=== PATIENT | female | born 1955 | race Caucasian/White ===

== ENCOUNTER → 2017-02-12 | Outpatient (CLI) | payer MEDICAID ==
--- NOTE | 2017-02-12 11:09 | Diagnostic Imaging Report ---
EXAMINATION: Bilateral lower extremity duplex venous ultrasound. TECHNIQUE: DVT protocol. Multiple sonographic images with color Doppler and waveform interrogation were performed of the lower extremity veins, bilaterally, with compression and augmentation maneuvers. INDICATION: Bilateral leg pain. FINDINGS: The lower extremity veins from the common femoral veins to below the knee veins were examined with normal color-flow, compressibility and normal waveform demonstrated. The peroneal veins within the distal calves were not seen on this exam. The great saphenous vein bilaterally is patent. IMPRESSION: No evidence of DVT in either lower extremity. Dictated by: Dictated on workstation # [id number]
== END ==
LOC: RAD 10:27
PROVIDERS: ATTEND Internal Medicine Critical Care Medicine
DX: M79.661 Pain in right lower leg (principal); M79.662 Pain in left lower leg; R06.00 Dyspnea, unspecified; J44.9 Chronic obstructive pulmonary disease, unspecified; G47.34 Idiopathic sleep related nonobstructive alveolar hypoventilation
CPT/HCPCS: 93970

== ENCOUNTER → 2017-02-27 | Outpatient (CLI) | payer MEDICAID ==
--- NOTE | 2017-02-27 17:10 | Diagnostic Imaging Report ---
PROCEDURE: CT chest without contrast. TECHNIQUE: Multiple contiguous axial images were obtained through the chest without the use of intravenous contrast. INDICATION: Difficulty breathing, productive cough. CORRELATION STUDY: None. FINDINGS: Evaluation of the mediastinal structures does demonstrate a few small lymph nodes. Evaluation of the mediastinum is limited given lack of intravenous contrast. Heart size is normal. There is presence of coronary artery and valvular calcification. Thoracic aortic contour appearing unremarkable. Prominent calcification of the aortic arch. There appears to be rather significant calcification of the origin of the left subclavian artery which may very well be stenotic. EG junction is unremarkable. Lung marcum do demonstrate advanced emphysematous changes to be present. No infiltrate. Visualized portion of the upper abdomen is relatively unremarkable. Osseous structures are unremarkable for acute findings. IMPRESSION: 1. Negative for acute abnormality of the chest on noncontrast imaging. Advanced emphysematous changes about the lung parenchyma. 2. Atherosclerotic vascular calcification. There is an asymmetric prominent calcification at the takeoff of the left subclavian artery, likely with stenosis. Dictated by: Dictated on workstation # [id number]
== END ==
LOC: EDUNIT# 02-12 09:47 → RAD 11:38
PROVIDERS: ATTEND Nurse Practitioner Family
DX: J43.9 Emphysema, unspecified (principal); I70.8 Atherosclerosis of other arteries
CPT/HCPCS: 71250

== ENCOUNTER → 2017-02-27 | Outpatient (CLI) | payer MEDICAID ==
[~2017-02-27] MED LIST: RT-ALBUTEROL SULF 2.5 MG/3 ML PRE-MIX VIAL IH ONE
== END ==
LOC: EDUNIT# 02-12 09:48 → RT 11:33
PROVIDERS: ATTEND Nurse Practitioner Family
DX: J40 Bronchitis, not specified as acute or chronic (principal); J44.9 Chronic obstructive pulmonary disease, unspecified; R06.00 Dyspnea, unspecified
CPT/HCPCS: 94060; 94640; 94726; 94729

== ENCOUNTER 2017-06-25 10:00 | Outpatient (RCR) | payer MEDICAID | END 2017-08-11 | disposition home or self-care (01) | LOC: PULM 10:00 | PROVIDERS: ATTEND Nurse Practitioner Family | DX: J40 Bronchitis, not specified as acute or chronic (principal); J44.9 Chronic obstructive pulmonary disease, unspecified; Z87.891 Personal history of nicotine dependence | CPT/HCPCS: 99211 ==

== ENCOUNTER 2017-10-31 13:00 | Outpatient (RCR) | payer MEDICAID ==
[2017-11-05 13:00] VITALS: BP 120/60
[2017-11-05 14:00] VITALS: BP 120/60
== END 2017-11-10 | disposition home or self-care (01) ==
LOC: PULM 13:00
PROVIDERS: ATTEND Nurse Practitioner Family
DX: J40 Bronchitis, not specified as acute or chronic (principal); J43.9 Emphysema, unspecified; Z87.891 Personal history of nicotine dependence
CPT/HCPCS: 99211

== ENCOUNTER → 2018-06-17 | Outpatient (CLI) | payer MEDICAID ==
--- NOTE | 2018-06-17 13:47 | Diagnostic Imaging Report ---
PROCEDURE: CT chest without contrast. TECHNIQUE: Multiple contiguous axial images were obtained through the chest without the use of intravenous contrast. INDICATION: COPD and emphysema. COMPARISON: Comparison is made with prior CT of the chest from 02/27/2017. FINDINGS: Study was performed with low-dose protocol which does limit overall quality of the study. No definite axillary lymphadenopathy is seen. Hilar and mediastinal evaluation is limited without intravenous contrast. Coronary arterial calcifications are again seen. No pericardial or pleural fluid is identified. There has been development of an area of linear parenchymal density in the right apex with some central calcifications. In the axial plane this area of irregular density with central calcification measures approximately 11 mm. There is some associated apical pleural parenchymal scarring present. There are centrilobular emphysematous changes in both lungs. No other parenchymal abnormality is seen. IMPRESSION: Right apical pleural-parenchymal density with central calcification, new since CT from 02/27/2017. This is likely chronic however continued close followup is recommended. Consideration could be given to performance of a PET scan as well to evaluate for hypermetabolism. Remainder of the study is unremarkable. Dictated by: Dictated on workstation # [id number]
== END ==
LOC: RAD 13:09
PROVIDERS: ATTEND Internal Medicine Critical Care Medicine
DX: J43.9 Emphysema, unspecified (principal); J30.2 Other seasonal allergic rhinitis; J40 Bronchitis, not specified as acute or chronic; G47.34 Idiopathic sleep related nonobstructive alveolar hypoventilation
CPT/HCPCS: 71250

== ENCOUNTER → 2018-07-01 | Outpatient (CLI) | payer MEDICAID ==
--- NOTE | 2018-07-01 14:08 | Diagnostic Imaging Report ---
INDICATION: Right apical nodule noted on a recent low-dose chest CT. TECHNIQUE: The serum blood glucose level at the time of injection was 85 dL. The patient was administered 11.2 mCi of F-18 FDG intravenously and PET imaging from the top of skull to the mid thighs was performed. A noncontrast CT was also performed for attenuation correction and anatomic correlation. COMPARISON: No prior PET study is available for comparison. Correlation is made with the recent low-dose chest CT from 06/17/2018. FINDINGS: Symmetric activity throughout the brain is noted. No suspicious hypermetabolism in the soft tissues of the neck is identified. The area of density in the right lung apex is without hypermetabolism. No pulmonary hypermetabolism is seen. The mediastinum and parish are unremarkable. Imaging through the abdomen and pelvis demonstrates physiologic activity within the GI and tracts. IMPRESSION: Unremarkable PET/CT study. No abnormal hypermetabolism in the right lung apex is seen. The area in question most likely represents chronic scarring. Dictated by: Dictated on workstation # [id number]
== END ==
LOC: RAD 10:28
PROVIDERS: ATTEND Internal Medicine Critical Care Medicine
DX: J43.9 Emphysema, unspecified (principal); J40 Bronchitis, not specified as acute or chronic; J30.2 Other seasonal allergic rhinitis; G47.34 Idiopathic sleep related nonobstructive alveolar hypoventilation; R91.1 Solitary pulmonary nodule

== ENCOUNTER → 2018-11-24 | Outpatient (CLI) | payer MEDICAID ==
[~2018-11-24] MED LIST changes: -RT-ALBUTEROL SULF 2.5 MG/3 ML PRE-MIX VIAL IH ONE; +RT-ALBUTEROL SULF 2.5 MG/3 ML PRE-MIX VIAL INH ONE
== END ==
LOC: RT 15:18
PROVIDERS: ATTEND Nurse Practitioner Family
DX: J43.9 Emphysema, unspecified (principal); J40 Bronchitis, not specified as acute or chronic; R06.02 Shortness of breath; J30.9 Allergic rhinitis, unspecified
CPT/HCPCS: 94060; 94726; 94729

== ENCOUNTER → 2019-01-09 | Outpatient (CLI) | payer MEDICAID ==
--- NOTE | 2019-01-09 10:01 | Diagnostic Imaging Report ---
PROCEDURE: CT chest without contrast. TECHNIQUE: Multiple contiguous axial images were obtained through the chest without the use of intravenous contrast. Auto Exposure Controls were utilized during the CT exam to meet ALARA standards for radiation dose reduction. INDICATION: Six month followup from previous abnormal CT lung screening study. Correlation is made with prior CT from 06/17/2018. No axillary lymphadenopathy is identified. Mediastinal lymph nodes appear to be stable when compared with prior study. No gross hilar abnormality is identified. There are coronary arterial calcifications. No pericardial fluid or pleural fluid is detected. The centrally calcified irregular density in the right lung apex is very similar in appearance and measures 11 mm, stable. Centrilobular emphysematous changes are identified in both lungs. No new mass or infiltrate is seen. Upper abdomen is unremarkable. IMPRESSION: 1. Stable spiculated partially calcified density right lung apex when compared with exam from 06/17/2018. No new abnormality is detected. Additional followup in 6-12 months could be performed to show continued stability. Dictated by: Dictated on workstation # [id number]
== END ==
LOC: RAD FS 08:31
PROVIDERS: ATTEND Nurse Practitioner Family
DX: J43.9 Emphysema, unspecified (principal); J98.4 Other disorders of lung; J30.2 Other seasonal allergic rhinitis; J40 Bronchitis, not specified as acute or chronic; G47.34 Idiopathic sleep related nonobstructive alveolar hypoventilation
CPT/HCPCS: 71250

== ENCOUNTER 2019-02-20 14:04 | Emergency (ER) | payer MEDICAID ==
[~2019-02-20] VITALS: Ht 152.4 cm; Wt 76.2 kg
[2019-02-20] MEDS ORDERED: NS IV 1000 ML 1,000 ML IV SCH (14:30)
[2019-02-20] MEDS ORDERED: KCL 20 MEQ TAB (K-DUR) PO ONE ×2 (14:30→15:15)
--- NOTE | 2019-02-20 14:52 | ED General ---
General Chief Complaint: General Problems/Pain Stated Complaint: LOW POTASSIUM Nursing Triage Note: was sent here by PCP for potassium level of 2.7. Nursing Sepsis Screen: No Definite Risk History of Present Illness Date Seen by Provider: Feb 20, 2019 Time Seen by Provider: 14:47 Initial Comments Patient is a 63-year-old female who was referred to the emergency department by her primary physician's office for evaluation of hypokalemia. The patient had labs completed yesterday and she was noted to have a potassium of 2.7. Her sodium was also 128. The patient has no symptoms. She reports that she has been feeling at baseline. She reports she has had both of these problems in the past. She does take Lasix daily. Her potassium had recently been increased to 20 mEq 3 times daily as opposed to 2 doses. Patient presents to the emergency department with no more specific complaints. Allergies and Home Medications Allergies Coded Allergies: sulfamethoxazole (Unverified Allergy, Intermediate, 02/27/17) patient has bad kidneys, and it makes her have a reaction trimethoprim (Unverified Allergy, Intermediate, 02/27/17) patient has bad kidneys, and it makes her have a reaction Uncoded Allergies: iodine dye (Adverse Reaction, Intermediate, 02/27/17) has bad kidneys, was told not to use iodine dyes Patient Home Medication List Home Medication List Reviewed: Yes Review of Systems Review of Systems Constitutional: no symptoms reported EENTM: no symptoms reported Respiratory: no symptoms reported Cardiovascular: no symptoms reported Genitourinary: no symptoms reported Musculoskeletal: no symptoms reported Skin: no symptoms reported All Other Systems Reviewed Negative Unless Noted: Yes Past Gdulkkq-Lxlbvr-Yaynxs Hx Patient Social History Alcohol Use: Denies Use Recreational Drug Use: No Smoking Status: Never a Smoker 2nd Hand Smoke Exposure: No Recent Foreign Travel: No Contact w/Someone Who Travel: No Recent Infectious Disease Expo: No Recent Hopitalizations: No Physical Abuse: No Sexual Abuse: No Mistreated: No Fear: No Seasonal Allergies Seasonal Allergies: No Past Medical History Surgeries: Yes (colonoscopy; dental) Respiratory: No Cardiac: No Neurological: No Genitourinary: No Gastrointestinal: No Musculoskeletal: No Endocrine: No HEENT: No Cancer: No Psychosocial: Yes Depression Integumentary: No Blood Disorders: No Adverse Reaction/Blood Tranf: No Physical Exam Vital Signs Vital Signs - First Documented 02/20/19 14:41 Temp 98.4 Pulse 83 Resp 19 B/P (MAP) 124/51 (75) Pulse Ox 97 Capillary Refill : Less Than 3 Seconds Height, Weight, BMI Height: 5'0" Weight: 168lbs. oz. 76.244904bw; BMI Method:Stated General Appearance: No Apparent Distress, WD/WN HEENT: PERRL/EOMI, Normal ENT Inspection Neck: Full Range of Motion Respiratory: Chest Non Tender, Lungs Clear Cardiovascular: Regular Rate, Rhythm Gastrointestinal: Non Tender, Soft Extremity: Normal Capillary Refill, Normal Inspection Neurologic/Psychiatric: Alert, Oriented x3, No Motor/Sensory Deficits, Normal Mood/Affect Skin: Normal Color, Warm/Dry Progress/Results/Core Measures Suspected Sepsis Recent Fever Within 48 Hours: No Infection Criteria Present: None New/Unexplained Altered Menta: No Sepsis Screen: No Definite Risk SIRS Temperature:98.4 Pulse: 83 Respiratory Rate: 19 Blood Pressure 124 /51 Mean: 75 Results/Orders My Orders Orders - MIKE RYAN DO Potassium Chloride (Tablet) (K Dur Table (02/20/19 14:30) Ekg Tracing (02/20/19 14:21) Potassium Chloride (Tablet) (K Dur Table (02/20/19 15:15) Medications Given in ED Current Medications Medications Dose Ordered Sig/Amor Route Start Time Stop Time Status Last Admin Dose Admin Potassium Chloride 40 meq ONCE ONCE PO 02/20/19 14:30 02/20/19 14:31 DC 02/20/19 14:47 40 MEQ Vital Signs/I&O 02/20/19 14:41 Temp 98.4 Pulse 83 Resp 19 B/P (MAP) 124/51 (75) Pulse Ox 97 Capillary Refill : Less Than 3 Seconds Blood Pressure Mean: 75 Progress Note : Time: 14:49 Progress Note Patient is seen and examined. No new labs are completed as she does have with her a copy of labs which were completed within the last 24 hours. The patient does have a potassium of 2.7. Her sodium is 128. Regarding both of these findings, there is no indication for IV potassium replacement with a level of 2.7 so this will not be completed in the emergency room. An EKG is completed and there are no EKG findings concerning for symptomatically hypokalemia. The patient additionally does not endorse any complaints. The risk of giving IV potassium much outweighs the benefit in a patient with normal renal function who could otherwise take by mouth replacement. In the ER, the plan is to give her 40 mg of potassium by mouth. She will receive another 40 mEq after 30 minutes. Regarding her sodium, 128 does not represent a critical low sodium level. Additionally, the patient has chronic low sodium. No immediate sodium replacement is indicated today and admission to the hospital is also not indicated. The patient does not have symptomatic hyponatremia. Consideration is given for check of serum osmolality, urine osmolality, urine electrolytes and creatinine and blood creatinine and sodium. These can be compared to possibly isolate a cause for her hyponatremia but these results will not return to this emergency department in a timely manner. Additionally, these can be completed on an outpatient basis and I recommend for her primary care physician to evaluate if not already done. 15:30: Patient is given a second dose of potassium. Plan is for discharge home. Patient was advised to increase her potassium dosage to 40 mEq in the morning, 20 mEq in the midday, and 40 mg in the evening. The patient has normal creatinine and if she takes too much potassium this should physiologically be cleared. Additionally, she takes Lasix which will also help clear her potassium. She is advised about fluid restriction over the next 1-2 days. She was advised to hold her Lasix as well over the next 2 doses only. Contact her primary care physician on Saturday to have her blood rechecked. ECG Initial ECG Impression Date: Feb 20, 2019 Initial ECG Impression Time: 14:45 Initial ECG Rate: 70 Initial ECG Rhythm: Normal Sinus Departure Impression Primary Impression: Hypokalemia Disposition: 01 HOME, SELF-CARE Condition: Improved Departure-Patient Inst. Referrals: DONALD PHILIP DO (PCP/Family) Primary Care Physician MIKE RYAN DO Feb 20, 2019 14:52
[2019-02-20 15:37] VITALS: BP 124/51
--- OUTSIDE RECORDS SUMMARY | 2019-02-20 20:53 | XMS REPORT | Continuity of Care Document ---
Author Organization Unknown Address Unknown Allergies Active Description Code Type Severity Reaction Onset Reported/Identified Relationship to Patient Clinical Status Yes iodine dye iodine dye Moderate N/A 02/27/2017 Yes sulfamethoxazole [id number] Drug Allergy Moderate N/A 02/27/2017 Yes trimethoprim [id number] Drug Allergy Moderate N/A 02/27/2017 Medications There is no data. Problems Date Dx Coded Attending Type Code Diagnosis Diagnosed By 02/28/2017 BRANDAN LÓPEZ APRN Ot I70.8 ATHEROSCLEROSIS OF OTHER ARTERIES 02/28/2017 BRANDAN LÓPEZ APRN Ot J43.9 EMPHYSEMA, UNSPECIFIED 03/01/2017 BRIAN MUSTAFA DO Ot G47.34 IDIO SLEEP RELATED NONOBSTRUCTIVE ALVEOL 03/01/2017 BRIAN MUSTAFA DO Ot J44.9 CHRONIC OBSTRUCTIVE PULMONARY DISEASE, U 03/01/2017 BRIAN MUSTAFA DO Ot M79.661 PAIN IN RIGHT LOWER LEG 03/01/2017 BRIAN MUSTAFA DO Ot M79.662 PAIN IN LEFT LOWER LEG 03/01/2017 BRIAN MUSTAFA DO Ot R06.00 DYSPNEA, UNSPECIFIED 03/01/2017 BRANDAN LÓPEZ APRN Ot J40 BRONCHITIS, NOT SPECIFIED ACUTE OR CH 03/01/2017 BRANDAN LÓPEZ APRN Ot J44.9 CHRONIC OBSTRUCTIVE PULMONARY DISEASE, U 03/01/2017 BRANDAN LÓPEZ APRN Ot R06.00 DYSPNEA, UNSPECIFIED 03/12/2017 BRANDAN LÓPEZ APRN Ot I70.8 ATHEROSCLEROSIS OF OTHER ARTERIES 03/12/2017 BRANDAN LÓPEZ APRN Ot J43.9 EMPHYSEMA, UNSPECIFIED 03/12/2017 BRANDAN LÓPEZ APRN Ot J40 BRONCHITIS, NOT SPECIFIED ACUTE OR CH 03/12/2017 BRANDAN LÓPEZ APRN Ot J44.9 CHRONIC OBSTRUCTIVE PULMONARY DISEASE, U 03/12/2017 RENE, BRANDAN E SPEECH/LANGUAGE THERAPIST Ot R06.00 DYSPNEA, UNSPECIFIED 05/14/2017 RENEISH MAYFIELDINE E SPEECH/LANGUAGE THERAPIST Ot J40 BRONCHITIS, NOT SPECIFIED ACUTE OR CH 05/14/2017 ISH LÓPEZINE E SPEECH/LANGUAGE THERAPIST Ot J44.9 CHRONIC OBSTRUCTIVE PULMONARY DISEASE, U 05/14/2017 ISH LÓPEZINE E SPEECH/LANGUAGE THERAPIST Ot Z87.891 PERSONAL HISTORY OF NICOTINE DEPENDENCE 06/19/2017 RENEISH MAYFIELDINE Gelacio SPEECH/LANGUAGE THERAPIST Ot J40 BRONCHITIS, NOT SPECIFIED ACUTE OR CH 06/19/2017 RENEISH MAYFIELDINE E SPEECH/LANGUAGE THERAPIST Ot J44.9 CHRONIC OBSTRUCTIVE PULMONARY DISEASE, U 06/19/2017 RENE, BRANDAN E SPEECH/LANGUAGE THERAPIST Ot Z87.891 PERSONAL HISTORY OF NICOTINE DEPENDENCE 08/11/2017 RENEISHRBANDAN E SPEECH/LANGUAGE THERAPIST Ot J40 BRONCHITIS, NOT SPECIFIED ACUTE OR CH 08/11/2017 RENEISH MAYFIELDINE E SPEECH/LANGUAGE THERAPIST Ot J44.9 CHRONIC OBSTRUCTIVE PULMONARY DISEASE, U 08/11/2017 RENEISH MAYFIELDINE E SPEECH/LANGUAGE THERAPIST Ot Z87.891 PERSONAL HISTORY OF NICOTINE DEPENDENCE 08/13/2017 RENEISHBRANDAN Gelacio SPEECH/LANGUAGE THERAPIST Ot J40 BRONCHITIS, NOT SPECIFIED ACUTE OR CH 08/13/2017 ISH LÓPEZINE E SPEECH/LANGUAGE THERAPIST Ot J43.9 EMPHYSEMA, UNSPECIFIED 08/13/2017 RENE BRANDAN E SPEECH/LANGUAGE THERAPIST Ot Z87.891 PERSONAL HISTORY OF NICOTINE DEPENDENCE 08/17/2017 RENEISHBRANDAN E SPEECH/LANGUAGE THERAPIST Ot J40 BRONCHITIS, NOT SPECIFIED ACUTE OR CH 08/17/2017 ISH LÓPEZINE E SPEECH/LANGUAGE THERAPIST Ot J44.9 CHRONIC OBSTRUCTIVE PULMONARY DISEASE, U 08/17/2017 ISH LÓPEZINE E SPEECH/LANGUAGE THERAPIST Ot Z87.891 PERSONAL HISTORY OF NICOTINE DEPENDENCE 09/18/2017 RENEISHBRANDAN E SPEECH/LANGUAGE THERAPIST Ot J40 BRONCHITIS, NOT SPECIFIED ACUTE OR CH 09/18/2017 RENEISH MAYFIELDINE E SPEECH/LANGUAGE THERAPIST Ot J43.9 EMPHYSEMA, UNSPECIFIED 09/18/2017 RENE BRANDAN E SPEECH/LANGUAGE THERAPIST Ot Z87.891 PERSONAL HISTORY OF NICOTINE DEPENDENCE 11/05/2017 RENE BRANDAN E SPEECH/LANGUAGE THERAPIST Ot J40 BRONCHITIS, NOT SPECIFIED ACUTE OR CH 11/05/2017 RENEISH MAYFIELDINE Gelacio SPEECH/LANGUAGE THERAPIST Ot J43.9 EMPHYSEMA, UNSPECIFIED 11/05/2017 RENE BRANDAN E SPEECH/LANGUAGE THERAPIST Ot Z87.891 PERSONAL HISTORY OF NICOTINE DEPENDENCE 11/10/2017 BRANDAN LÓPEZ SPEECH/LANGUAGE THERAPIST Ot J40 BRONCHITIS, NOT SPECIFIED ACUTE OR CH 11/10/2017 BRANDAN LÓPEZ SPEECH/LANGUAGE THERAPIST Ot J43.9 EMPHYSEMA, UNSPECIFIED 11/10/2017 BRANDAN LÓPEZ E SPEECH/LANGUAGE THERAPIST Ot Z87.891 PERSONAL HISTORY OF NICOTINE DEPENDENCE 11/12/2017 BRANDAN LÓPEZ SPEECH/LANGUAGE THERAPIST Ot J40 BRONCHITIS, NOT SPECIFIED ACUTE OR CH 11/12/2017 BRANDAN LÓPEZ SPEECH/LANGUAGE THERAPIST Ot J43.9 EMPHYSEMA, UNSPECIFIED 11/12/2017 BRANDAN LÓPEZ SPEECH/LANGUAGE THERAPIST Ot Z87.891 PERSONAL HISTORY OF NICOTINE DEPENDENCE 06/13/2018 BRANDAN LÓPEZ SPEECH/LANGUAGE THERAPIST Ot I70.8 ATHEROSCLEROSIS OF OTHER ARTERIES 06/13/2018 BRANDAN LÓPEZ SPEECH/LANGUAGE THERAPIST Ot J43.9 EMPHYSEMA, UNSPECIFIED 06/13/2018 BRANDAN LÓPEZ SPEECH/LANGUAGE THERAPIST Ot J40 BRONCHITIS, NOT SPECIFIED ACUTE OR CH 06/13/2018 BRANDAN LÓPEZ SPEECH/LANGUAGE THERAPIST Ot J44.9 CHRONIC OBSTRUCTIVE PULMONARY DISEASE, U 06/13/2018 BRANDAN LÓPEZ SPEECH/LANGUAGE THERAPIST Ot R06.00 DYSPNEA, UNSPECIFIED 06/13/2018 BRIAN MUSTAFA DO Ot G47.34 IDIO SLEEP RELATED NONOBSTRUCTIVE ALVEOL 06/13/2018 BRIAN MUSTAFA DO Ot J44.9 CHRONIC OBSTRUCTIVE PULMONARY DISEASE, U 06/13/2018 BRIAN MUSTAFA DO Ot M79.661 PAIN IN RIGHT LOWER LEG 06/13/2018 BRIAN MUSTAFA DO Ot M79.662 PAIN IN LEFT LOWER LEG 06/13/2018 BRIAN MUSTAFA DO Ot R06.00 DYSPNEA, UNSPECIFIED 06/13/2018 BRANDAN LÓPEZ SPEECH/LANGUAGE THERAPIST Ot J40 BRONCHITIS, NOT SPECIFIED ACUTE OR CH 06/13/2018 BRANDAN LÓPEZ SPEECH/LANGUAGE THERAPIST Ot J44.9 CHRONIC OBSTRUCTIVE PULMONARY DISEASE, U 06/13/2018 BRANDAN LÓPEZ SPEECH/LANGUAGE THERAPIST Ot Z87.891 PERSONAL HISTORY OF NICOTINE DEPENDENCE 06/13/2018 BRANDAN LÓPEZ SPEECH/LANGUAGE THERAPIST Ot J40 BRONCHITIS, NOT SPECIFIED ACUTE OR CH 06/13/2018 BRANDAN LÓPEZ SPEECH/LANGUAGE THERAPIST Ot J43.9 EMPHYSEMA, UNSPECIFIED 06/13/2018 BRANDAN LÓPEZ SPEECH/LANGUAGE THERAPIST Ot Z87.891 PERSONAL HISTORY OF NICOTINE DEPENDENCE 06/18/2018 BRIAN MUSTAFA DO Ot G47.34 IDIO SLEEP RELATED NONOBSTRUCTIVE ALVEOL 06/18/2018 BRIAN MUSTAFA DO Ot J30.2 OTHER SEASONAL ALLERGIC RHINITIS 06/18/2018 BRIAN MUSTAFA DO Ot J40 BRONCHITIS, NOT SPECIFIED ACUTE OR CH 06/18/2018 BRIAN MUSTAFA DO Ot J43.9 EMPHYSEMA, UNSPECIFIED 07/02/2018 BRIAN MUSTAFA DO M Ot G47.34 IDIO SLEEP RELATED NONOBSTRUCTIVE ALVEOL 07/02/2018 BRIAN MUSTAFA DO Ot J30.2 OTHER SEASONAL ALLERGIC RHINITIS 07/02/2018 BRIAN MUSTAFA DO Ot J40 BRONCHITIS, NOT SPECIFIED ACUTE OR CH 07/02/2018 BRIAN MUSTAFA DO Ot J43.9 EMPHYSEMA, UNSPECIFIED 07/02/2018 BRIAN MUSTAFA DO Ot R91.1 SOLITARY PULMONARY NODULE 07/08/2018 BRIAN MUSTAFA DO Ot G47.34 IDIO SLEEP RELATED NONOBSTRUCTIVE ALVEOL 07/08/2018 BRIAN MUSTAFA DO Ot J30.2 OTHER SEASONAL ALLERGIC RHINITIS 07/08/2018 BRIAN MUSTAFA DO M Ot J40 BRONCHITIS, NOT SPECIFIED ACUTE OR CH 07/08/2018 BRIAN MUSTAFA DO M Ot J43.9 EMPHYSEMA, UNSPECIFIED 11/25/2018 BRANDAN LÓPEZ SPEECH/LANGUAGE THERAPIST Ot J30.9 ALLERGIC RHINITIS, UNSPECIFIED 11/25/2018 BRANDAN LÓPEZ SPEECH/LANGUAGE THERAPIST Ot J40 BRONCHITIS, NOT SPECIFIED ACUTE OR CH 11/25/2018 ISH LÓPEZINE E SPEECH/LANGUAGE THERAPIST Ot J43.9 EMPHYSEMA, UNSPECIFIED 11/25/2018 BRANDAN LÓPEZ SPEECH/LANGUAGE THERAPIST Ot R06.02 SHORTNESS OF BREATH 12/10/2018 BRANDAN LÓPEZ SPEECH/LANGUAGE THERAPIST Ot J30.9 ALLERGIC RHINITIS, UNSPECIFIED 12/10/2018 RENEISH MAYFIELDINE Gelacio SPEECH/LANGUAGE THERAPIST Ot J40 BRONCHITIS, NOT SPECIFIED ACUTE OR CH 12/10/2018 ISH LÓPEZINE E SPEECH/LANGUAGE THERAPIST Ot J43.9 EMPHYSEMA, UNSPECIFIED 12/10/2018 ISH LÓPEZINE E SPEECH/LANGUAGE THERAPIST Ot R06.02 SHORTNESS OF BREATH 01/18/2019 BRANDAN LÓPEZ SPEECH/LANGUAGE THERAPIST Ot G47.34 IDIO SLEEP RELATED NONOBSTRUCTIVE ALVEOL 01/18/2019 BRANDAN LÓPEZ SPEECH/LANGUAGE THERAPIST Ot J30.2 OTHER SEASONAL ALLERGIC RHINITIS 01/18/2019 BRANDAN LÓPEZ SPEECH/LANGUAGE THERAPIST Ot J40 BRONCHITIS, NOT SPECIFIED ACUTE OR CH 01/18/2019 BRANDAN LÓPEZ SPEECH/LANGUAGE THERAPIST Ot J43.9 EMPHYSEMA, UNSPECIFIED 01/18/2019 BRANDAN LÓPEZ SPEECH/LANGUAGE THERAPIST Ot J98.4 OTHER DISORDERS OF LUNG 01/28/2019 BRANDAN LÓPEZ SPEECH/LANGUAGE THERAPIST Ot G47.34 IDIO SLEEP RELATED NONOBSTRUCTIVE ALVEOL 01/28/2019 BRANDAN LÓPEZ SPEECH/LANGUAGE THERAPIST Ot J30.2 OTHER SEASONAL ALLERGIC RHINITIS 01/28/2019 BRANDAN LÓPEZ SPEECH/LANGUAGE THERAPIST Ot J40 BRONCHITIS, NOT SPECIFIED ACUTE OR CH 01/28/2019 BRANDAN LÓPEZ SPEECH/LANGUAGE THERAPIST Ot J43.9 EMPHYSEMA, UNSPECIFIED 01/28/2019 BRANDAN LÓPEZ SPEECH/LANGUAGE THERAPIST Ot J98.4 OTHER DISORDERS OF LUNG Procedures There is no data. Results There is no data. Encounters ACCT No. Visit Date/Time Discharge Status Pt. Type Provider Facility Loc./Unit Complaint [id number] 02/20/2019 14:06:00 02/20/2019 15:44:00 DIS Emergency MIKE RYAN DO [facility] ER FS LOW POTASSIUM [id number] 01/09/2019 08:31:00 01/09/2019 23:59:59 CLS Outpatient BRANDAN LÓPEZ APRN [facility] RAD FS ABN CT SCAN OF LUNG [id number] 11/24/2018 15:18:00 11/24/2018 23:59:59 CLS Outpatient BRANDAN LÓPEZ APRN [facility] RT COPD,BRONCHITIS [id number] 07/01/2018 10:28:00 07/01/2018 23:59:59 CLS Outpatient BRIAN MUSTAFA DO [facility] RAD BRONCHITIS,SOB,SEASONAL ALLERGIES,COPD [id number] 2018 13:09:00 2018 23:59:59 CLS Outpatient BRIAN MUSTAFA DO [facility] RAD COPD [id number] 11/11/2017 14:30:00 11/11/2017 23:59:59 CLS Preadmit ISH LÓPEZINE E SPEECH/LANGUAGE THERAPIST [facility] PULM J40 BRONCHITIS [id number] 10/31/2017 13:00:00 11/10/2017 00:01:00 DIS Outpatient ISH LÓPEZINE E SPEECH/LANGUAGE THERAPIST [facility] PULM J40 BRONCHITIS [id number] 08/12/2017 10:15:00 08/12/2017 23:59:59 CLS Preadmit ISH LÓPEZINE E SPEECH/LANGUAGE THERAPIST [facility] PULM BRONCHITIS,COPD [id number] 06/25/2017 10:00:00 08/11/2017 00:01:00 DIS Outpatient ISH LÓPEZINE E SPEECH/LANGUAGE THERAPIST [facility] PULM BRONCHITIS,COPD [id number] 02/27/2017 11:38:00 02/27/2017 23:59:59 CLS Outpatient BRANDAN LÓPEZ E SPEECH/LANGUAGE THERAPIST [facility] RAD COPD J44.9,SOB R06.00 [id number] 02/27/2017 11:33:00 02/27/2017 23:59:59 CLS Outpatient BRANDAN LÓPEZ E SPEECH/LANGUAGE THERAPIST [facility] RT BRONCHITIS J40,COPD J44.9 [id number] 02/12/2017 10:27:00 02/12/2017 23:59:59 CLS Outpatient BRIAN MUSTAFA DO [facility] RAD SOB R06.00,COPD J44.9
== END 2019-02-20 15:44 | disposition home or self-care (01) ==
LOC: EDUNIT# 14:04 → ER FS 14:06
DX: E87.6 Hypokalemia (principal); F32.9 Major depressive disorder, single episode, unspecified; Z88.2 Allergy status to sulfonamides; Z88.1 Allergy status to other antibiotic agents; Z91.041 Radiographic dye allergy status
CPT/HCPCS: 93005

== ENCOUNTER → 2019-07-07 | Outpatient (CLI) | payer MEDICAID ==
--- NOTE | 2019-07-07 09:36 | Diagnostic Imaging Report ---
PROCEDURE: CT chest without contrast. TECHNIQUE: Multiple contiguous axial images were obtained through the chest without the use of intravenous contrast. Auto Exposure Controls were utilized during the CT exam to meet ALARA standards for radiation dose reduction. INDICATION: Follow-up of the density in right lung from 01/09/2019 at [facility]. COPD. FINDINGS: The apical pleural density measuring approximately 10 mm with some spiculation again noted on the right. This likely represents pleural scarring. The lungs show mild hyperaeration. No new parenchymal masses have developed. No mediastinal or hilar adenopathy of pathologic size. No pleural effusions or pericardial effusion. There is dense calcification of the aorta and coronary arteries. No bony lesions have developed. IMPRESSION: 1. Stable apical spiculated density on the right. This is consistent with apical pleural scarring. No changes have occurred since previous exam. 2. Obstructive interstitial lung disease is unchanged. Dictated by: Dictated on workstation # [id number]
== END ==
LOC: RAD FS 08:47
PROVIDERS: ATTEND Nurse Practitioner Family
DX: J84.9 Interstitial pulmonary disease, unspecified (principal); G89.29 Other chronic pain; J43.9 Emphysema, unspecified; J30.2 Other seasonal allergic rhinitis; J40 Bronchitis, not specified as acute or chronic; R91.8 Other nonspecific abnormal finding of lung field
CPT/HCPCS: 71250

== ENCOUNTER → 2019-12-14 | Outpatient (CLI) | payer MEDICAID ==
[~2019-12-14] MED LIST changes: +BARIUM SUSPENSION 2.1% (VANILLA SILQ) 450 ML PO ONE; +CATHETER FLUSH 10 ML SYR IV PRN; +HOLD METFORMIN - RECEIVED CONTRAST 20 ML VIAL IV SCH; +IOHEXOL 350 MG/ML 100 ML (OMNIPAQUE 350) VIAL IV ONE; +NS 100 ML (IVPB) BAG IV ONE; -RT-ALBUTEROL SULF 2.5 MG/3 ML PRE-MIX VIAL INH ONE
--- NOTE | 2019-12-14 09:43 | Diagnostic Imaging Report ---
PROCEDURE: CT abdomen and pelvis with contrast. TECHNIQUE: Multiple contiguous axial images were obtained through the abdomen and pelvis after administration of intravenous contrast. Auto Exposure Controls were utilized during the CT exam to meet ALARA standards for radiation dose reduction. INDICATION: Lower abdominal pain and pressure for one month. No prior studies are available for comparison. FINDINGS: The lung bases are clear. No discrete liver mass is detected. The gallbladder is unremarkable. No biliary ductal dilatation is detected. The pancreas and spleen are unremarkable. No adrenal mass is detected. Kidneys are unremarkable. No hydronephrosis. Aorta is heavily calcified but non-aneurysmal. No central retroperitoneal or mesenteric lymphadenopathy is detected. Bowel loops are normal caliber. No obstruction is identified. No free fluid or fluid collection is identified. The bladder is decompressed. Uterus is unremarkable. Bony structures are nonacute. IMPRESSION: 1. No acute feature in the abdomen or pelvis is identified. Dictated by: Dictated on workstation # [id number]
== END ==
LOC: RAD FS 08:46
PROVIDERS: ATTEND Emergency Medicine
DX: R10.30 Lower abdominal pain, unspecified (principal)
CPT/HCPCS: 74177

== ENCOUNTER 2020-02-29 13:46 | Outpatient (CLI) | payer MEDICAID ==
[2020-02-29 15:16] VITALS: BP 116/67
--- NOTE | 2020-02-29 15:20 | NUR ---
PT WALKED FOR 6MINS, SP02 DID NOT DROP BELOW 93% DURING THE 6 MINS Addendum: 02/29/20 at 1521 by MOJGAN NIELSEN Amended: Links added.
== END 2020-02-29 15:00 | disposition home or self-care (01) ==
LOC: SLEEP 13:46
PROVIDERS: ATTEND Nurse Practitioner Family
DX: G47.10 Hypersomnia, unspecified (principal); G47.36 Sleep related hypoventilation in conditions classified elsewhere; J43.9 Emphysema, unspecified; J30.2 Other seasonal allergic rhinitis; J40 Bronchitis, not specified as acute or chronic; F41.9 Anxiety disorder, unspecified; I83.90 Asymptomatic varicose veins of unspecified lower extremity; I73.9 Peripheral vascular disease, unspecified; N28.9 Disorder of kidney and ureter, unspecified; M79.7 Fibromyalgia; Z98.890 Other specified postprocedural states
CPT/HCPCS: 94761; G0399

== ENCOUNTER → 2020-10-12 | Outpatient (CLI) | payer MEDICAID ==
--- NOTE | 2020-10-12 09:46 | Diagnostic Imaging Report ---
EXAMINATION: CT Chest without contrast. TECHNIQUE: Multiple contiguous axial images were obtained through the chest without the use of intravenous contrast. All CT scans use one or more of the following dose optimizing techniques: automated exposure control, MA and/or KvP adjustment based on a patient size and exam type, or iterative reconstruction. HISTORY: COPD COMPARISON: CT chest 07/07/2019. FINDINGS: Thyroid: The thyroid is normal. Mediastinum: Heart size is normal without significant pericardial effusion. Calcifications of the aorta and coronary vessels. Thoracic aorta is normal in caliber. No suspicious lymphadenopathy. Lungs and airways: Stable background findings of emphysema greatest within the lung apices. Biapical scarring, right greater than left, unchanged from 07/07/2019. No new consolidation, pleural effusion, or pneumothorax. Bibasilar atelectasis. No new suspicious pulmonary nodule. The airways are normal. Upper abdomen: The subphrenic structures are normal. Musculoskeletal: Degenerative changes of the spine without suspicious osseous lesion or compression fracture. IMPRESSION: 1. Stable background findings of emphysema without other acute abnormality in the chest. Dictated by: Dictated on workstation # [id number]
== END ==
LOC: RAD FS 09:00
PROVIDERS: ATTEND Nurse Practitioner Family
DX: J43.9 Emphysema, unspecified (principal)
CPT/HCPCS: 71250

== ENCOUNTER → 2022-04-12 | Outpatient (CLI) | payer MEDICAID ==
--- NOTE | 2022-04-12 18:36 | Diagnostic Imaging Report ---
INDICATION: Back pain. FINDINGS: The bones are osteopenic. There is mild age-indeterminate superior compression fracture of L4. This was not present on the prior CT from 12/14/2019. There is no spondylolysis or spondylolisthesis. There is lower lumbar hypertrophic degenerative facet disease. IMPRESSION: Diffuse lumbar spondylosis with an age-indeterminate compression fracture involving the superior endplate of L4. This does appear sclerotic and is likely chronic. Recommend clinical correlation and if warranted followup with MRI. Dictated by: Dictated on workstation # [id number]
== END ==
LOC: RAD FS 12:59
PROVIDERS: ATTEND Emergency Medicine
DX: M47.816 Spondylosis without myelopathy or radiculopathy, lumbar region (principal); M48.56XA Collapsed vertebra, not elsewhere classified, lumbar region, initial encounter for fracture
CPT/HCPCS: 72100